=== PATIENT | male | born 1985 | race Caucasian/White ===

== ENCOUNTER 2021-08-16 17:08 | Emergency (ER) | payer BC ==
[2021-08-16 17:19] VITALS: BP 147/96
[2021-08-16] MEDS ORDERED: LIDOCAINE-MPF 2% 5 ML VIAL SUBQ STA (17:23)
--- NOTE | 2021-08-16 17:55 | ED Physician Documentation ---
PD HPI UPPER EXT INJURY - Stated complaint Stated Complaint: LT FINGER INJ - Chief complaint Chief Complaint: Trauma Ext - History obtained from History obtained from: Patient - History of Present Illness Location: Left, Finger (index) Type of injury: Laceration Where injury occurred: Home Timing - onset: How many hours ago (1) Timing - duration: Hours (1) Timing - details: Abrupt onset Pain level max: 6 Pain level now: 6 Improved by: Rest Worsened by: Moving, Palpating Associated symptoms: No: Weakness, Numbness, Tingling, Swelling, Discolored - Additonal information Additional information: Patient states he was using a asked to make kindling when it slipped and accidentally cut the left index finger. Tetanus is up-to-date. No numbness or tingling. Has full range of motion of the finger. Patient is right handed. Review of Systems Constitutional: denies: Fever, Chills PD PAST MEDICAL HISTORY - Past Medical History Past Medical History: No - Past Surgical History Past Surgical History: No - Present Medications Home Medications: Ambulatory Orders Medication Instructions Recorded Confirmed cephALEXin [Keflex] 500 mg PO Q6H #28 cap 08/16/21 - Allergies Allergies/Adverse Reactions: Allergies Allergy/AdvReac Type Severity Reaction Status Date / Time No Known Drug Allergies Allergy Verified 08/16/21 17:19 - Living Situation Living Situation: reports: With family Living Arrangement: reports: At home - Social History Does the pt drink ETOH?: Yes - Family History Family history: reports: Non contributory - Immunizations Immunizations are current?: Yes Immunizations: TDAP current <10years PD ED PE NORMAL - Vitals Vital signs reviewed: Yes - General General: Alert and oriented X 3, No acute distress - HEENT HEENT: Moist mucous membranes - Neck Neck: Supple, no meningeal sign - Derm Derm: Warm and dry - Neuro Neuro: Alert and oriented X 3 PD ED PE EXPANDED - Extremities ERIC UE/Hands Visual: 1 - laceration (flap, v-shaped, 6cm. NVI. subcutaneous.) Results - Vitals Vitals: Vital Signs - 24 hr 08/16/21 08/16/21 17:11 18:11 Temperature 36.5 C Heart Rate 84 80 Respiratory 16 18 Rate Blood Pressure 147/96 H O2 Saturation 98 Oxygen O2 Source Room air Procedures - Laceration (location) L index finger Length in cm: 6 Wound type: Linear Neurovascular status: Sensory intact, Motor intact, Vascular intact Anesthesia: Lidocaine 2% Wound preparation: Irrigated copiously NS (500ml), Wound explored, To the base Skin layer closure: Nylon, Interrupted, Size #-0 - enter number (4), Sutures - enter # (10) Other: Patient tolerated well, No complications, Neurovascular intact, Dressing applied, Tetanus UTD PD MEDICAL DECISION MAKING - ED course Complexity details: considered differential, d/w patient ED course: 36-year-old male with a laceration to the left index finger. V-shaped, flap. Subcutaneous. No tendon injury. Flexion and extension test against resistance. Neurovascularly intact. No arterial injury. No numbness or tingling. Laceration repaired. Tolerated well. Tetanus up-to-date. Will place on Keflex for home. Dressing applied. Patient refused a splint. Tried to inform the patient that this would help the healing to minimize motion of the finger, it would also help with the pain. Patient still refused the splint. Patient will follow up closely with his doctor for wound check and suture removal. Warnings of infection and instructions on wound care given at bedside. Patient counseled regarding signs and symptoms for which I believe and urgent re-evaluation would be necessary. Patient with good understanding of and agreement to plan and is comfortable going home at this time This document was made in part using voice recognition software. While efforts are made to proofread this document, sound alike and grammatical errors may occur. Departure - Departure Disposition: Home, Self Care Clinical Impression: Finger laceration Qualifiers: Encounter type: initial encounter Finger: index finger Damage to nail status: unspecified Foreign body presence: unspecified Laterality: left Qualified Code(s): S61.211A - Laceration without foreign body of left index finger without damage to nail, initial encounter Condition: Good Instructions: ED Laceration Hand Follow-Up: your,doctor in 10-14 days for suture removal [Other] Prescriptions: cephALEXin [Keflex] 500 mg PO Q6H #28 cap Comments: Your prescription was sent to [facility] in [place]. You need to keep the wound clean. You should have your doctor recheck the wound in 3 to 4 days. Sutures should be removed in 10 to 14 days. Return sooner if you notice redness, swelling or drainage from the wound. I would recommend wearing the splint for the next 3 to 4 days at least. Do not wrap anything tightly around the finger. Discharge Date/Time: 08/16/21 18:11
== END 2021-08-16 18:11 | disposition home or self-care (01) ==
LOC: ED 17:08
DX: S61.211A Laceration without foreign body of left index finger without damage to nail, initial encounter (principal); W27.0XXA Contact with workbench tool, initial encounter; Y93.89 Activity, other specified; Y92.009 Unspecified place in unspecified non-institutional (private) residence as the place of occurrence of the external cause
CPT/HCPCS: 12002; 99282